=== PATIENT | female | born 2000 | race Caucasian/White ===

== ENCOUNTER 2022-08-27 09:52 | Emergency (ER) | payer MEDICAID, SELFPAY ==
[2022-08-27 10:30] VITALS: BP 120/78; PULSE 81; RESP 20; TEMP 36.2; O2SAT 98; BMI 28.3
[2022-08-27 11:24] LABS: Appearance Urine Clear; Color Urine Yellow; Glucose Urine UA Negative (Negative); Leukocyte Esterase Urine Negative (Negative); Nitrite Urine Negative (Negative); UMIC TRIGGER UACC YES; Urine Blood Large (3+) (Negative); Urine Ketones Negative (Negative); Urine Protein Negative (Neg-Trace)
[2022-08-27 11:26] LABS: Basophils Percent Auto 0.5 % (0-2); Eosinophils Absolute Auto 0.4 X10*3/uL (0.0-0.4); Eosinophils Percent Auto 9.3 % (0-4); Hematocrit 36.7 % (37.0-47.0); Hemoglobin 12.2 g/dl (12.0-16.0); Imm Gran Abs Auto 0.03 X10*3/uL (0.00-0.03); Imm Gran Pct Auto 0.8 % (0.0-0.4); Lymphocytes Absolute Auto 1.6 X10*3/uL (1.2-4.9); MANUAL DIFF FLAG SCAN; Mean Corpuscular HGB Conc 33.2 g/dl (31.0-35.0); Mean Corpuscular Hemoglobin 28.1 pg (27.0-33.0); Mean Corpuscular Volume 84.6 fL (80.0-98.0); Monocytes Absolute Auto 0.2 X10*3/uL (0.1-1.2); Monocytes Percent Auto 5.8 % (2-11); Neutrophils Absolute Auto 1.8 x10*3/uL (2.0-8.3); Neutrophils Percent Auto 44.6 % (45-73); PLT CLUMP 1; Red Blood Count 4.34 X10*6/uL (4.20-5.50); Red Cell Distribution Width 12.3 % (11.0-16.0); SCAN SMEAR FLAG 1
[2022-08-27 11:26] LABS: UPreg QC Valid YES; Urine Pregnancy NEGATIVE (NEGATIVE)
[2022-08-27 11:36] LABS: Influenza A PCR NEGATIVE (Negative); Influenza B PCR NEGATIVE (Negative); Resp Syncy Virus RNA Qual PCR NEGATIVE (Negative); SARS COV2 PCR INHOUSE NEGATIVE (Negative)
[2022-08-27 11:47] LABS: Bacteria Urine 2+ (None Seen); Hyaline Casts Urine 0-2 /LPF (0-2); WBC Urine 0-5 /HPF (0-5)
[2022-08-27 12:14] VITALS: BP 124/67; PULSE 82; RESP 14; TEMP 36.7; O2SAT 97
--- NOTE | 2022-08-27 12:22 | ED.GENADULT ---
HPI - General Adult General Chief complaint: General Medical Stated complaint: abd pain, cant keep anything down Time Seen by Provider: 08/27/22 11:56 Source: patient Mode of arrival: ambulatory Limitations: no limitations History of Present Illness HPI narrative: 22-year-old female with no significant past medical history presents to the emergency department with complaints of sharp abdominal pain, a foul smell in her nose, and tooth pain/swelling on the right upper and left lower mouth x5 days. She also complains of a vague headache. She states she had COVID-19 roughly 2 weeks ago and she has been having nasal congestion since. She states she is not followed by a dentist that she is afraid to be seen by 1. She has known broken and cracked teeth in her mouth. She denies any chest pain or shortness of breath and endorses having her menses currently. She endorses cigarette and marijuana use. Denies any use of harder drugs, however she receives treatment in a methadone clinic with her last dose this morning. Onset (ago): day(s) (5) Location: mouth and abdomen Radiation: non-radiation Severity: moderate Severity scale (1-10): 6 Quality: aching Pain Consistency: constant Relieving factors: none Exacerbating factors: none Associated symptoms: denies other symptoms Treatments prior to arrival: none Related Data Previous Rx's Medication Instructions Recorded amoxicillin 875 mg-potassium 1 tab PO BID 7 days #14 tabs 08/27/22 clavulanate 125 mg tablet Allergies Allergy/AdvReac Type Severity Reaction Status Date / Time No Known Allergies Allergy Unverified 06/14/20 16:38 [No Known Allergies*] Review of Systems Review of Systems: Yes all other systems are reviewed and are negative Constitutional: Constitutional: Reports no additional constitutional complaints, Denies chills, Denies fatigue, Denies fever(s), Reports headache(s), Denies malaise and Denies weakness Eyes: Eyes: Reports no additional eye complaints and Denies change in vision ENT: Reports system reviewed and no additional complaints, except as documented, Reports Normal hearing present, Denies dizziness, Reports headache(s), Reports nasal congestion and Denies sore throat Cardiovascular: Cardiovascular: Reports no additional cardiovascular complaints, Denies chest pain and Denies dyspnea Respiratory: Respiratory: Reports no additional respiratory complaints and Denies dyspnea Gastrointestinal: Gastrointestinal: Reports no additional gastrointestinal complaints, Reports abdominal pain and Denies change in bowel habits Genitourinary: Genitourinary: Reports no additional female genitourinary complaints and Reports other (current menses) Musculoskeletal: Musculoskeletal: Reports no additional musculoskeletal complaints and Reports myalgias Integumentary/Breasts: Skin/Breast: Reports system reviewed and no additional complaints, except as docu, Denies lesions, Denies rash and Denies sores Neurologic: Reports system reviewed and no additional complaints, except as documented, Reports Normal hearing present, Denies dizziness, Reports headache(s) and Denies weakness Psychiatric: Psychiatric: Reports no additional psychiatric complaints and Denies anxiety Endocrine: Endocrine: Denies fatigue PMFSH Past Medical History Attestation statement: The following information was validated with the patient. Source: old records reviewed and obtained from family Social History Social History Advance Directives: No Advance Directives Information Provided: No Physical Exam ED Vital Signs: Vital Signs - 24 hr 08/27/22 10:30 08/27/22 12:14 08/27/22 12:24 Temperature 97.2 F 98.1 F 98.1 F Pulse Rate 81 82 82 Respiratory Rate 20 14 14 Blood Pressure 120/78 124/67 124/67 Pulse Oximetry 98 97 97 Oxygen Delivery Method Room Air Room Air BMI result Body Mass Index 28.3 Const General: cooperative, alert and awake Nutritional Appearance: well nourished Orientation/consciousness: patient oriented x3 Limitations: no limitations HENMT Head: Yes normal to inspection and Yes atraumatic Ears: hearing grossly normal bilaterally and external ears normal General nose exam: Normal external nose present Face and sinus: No ecchymosis, No erythema and Yes other (swelling noted at right zygoma and left front mandible) Mouth: tongue normal, moist mucous membranes and malodorous breath Teeth and gingiva: abnormal tooth and associated gingiva (#22, 1, 2) and poor dentition Throat: Yes posterior oropharynx normal Eyes General: appearance normal, both eyes and all related structures Alignment and Position: alignment normal Periorbital: periorbital findings normal Eyelids: Yes eyelids normal Conjunctivae: conjunctivae normal Sclerae: sclerae normal Pupils: Equal, round and reactive pupils present EOM: EOMs intact bilaterally Neck Neck: Yes normal visual inspection, Yes full ROM and Yes no lymphadenopathy Chest Chest palpation & inspection: normal inspection of the chest Resp Effort & Inspection: normal respiratory effort and able to speak in complete sentences Auscultation: clear to auscultation bilaterally Cardio Rate: regular rate Rhythm: regular rhythm GI Inspection: Yes normal to inspection and Yes striae Palpation (GI): Soft to palpation, Firmness to palpation present (GI), nontender and No Rebound tenderness present Auscultation: normal bowel sounds General: Yes no CVA tenderness Back/Spine/Pelvis Back: no CVA tenderness Cervical Spine: cervical ROM normal Thoracic/Lumbar Spine: thoraco-lumbar ROM normal Skin General skin exam: no rashes or lesions noted Neuro General: patient oriented x3 Cranial nerves: Yes Equal, round and reactive pupils present, Yes Midline tongue present and Yes Normal hearing present Cognition (Neuro): normal cognition Gait exam (Neuro): Normal gait present Motor exam (neuro): 5/5 motor strength present throughout Sensory Exam: Normal double simultaneous stimulation for sensation Extrem General: Yes normal to inspection, Yes full ROM and Yes capillary refill normal Psych Appearance: grossly normal Mental Status: mental status grossly normal Speech and movement: Normal speech and movement present Affect: normal affect Attitude: cooperative Thought process: Normal thought process present Thought content: Normal thought content present Insight: Good insight present (Psych) Judgement: Good judgement present (Psych) Medications Administered Discontinued Medications Generic Name Dose Route Start Last Admin Trade Name Freq PRN Reason Stop Dose Admin Amoxicillin/Clavulanate Potassium 875 mg 08/27/22 12:20 08/27/22 12:51 Amoxicillin/Potassium Clav 875 Mg Tablet PO 08/27/22 12:21 875 mg ONCE ONE Administration Medical Decision Making [facility] Narrative Medical decision making narrative: 22-year-old female with no significant past medical history presents to the emergency department with complaints of sharp abdominal pain, a foul smell in her nose, and tooth pain/swelling on the right upper and left lower mouth x5 days. Erythema and swelling noted at tooth 22, 1, 2. Augmentin 850 mg given and plan to discharge patient with Augmentin 875 b.i.d. x7 days and recommendation to see dentist immediately. GI cocktail (Maalox, viscous lidocaine, p.o. Pepcid) given. Physical exam and history discussed with patient with no unanswered questions at this time. Educated that it is essential that she follow up with a dentist regarding dentition. Educated to return to the emergency department with chest pain, shortness of breath, severe abdominal pain, nausea, vomiting, fever, chills or any other emergent symptoms it may concern you. Recommended to follow-up with her primary care provider for further treatment and management. Lab Data Result diagrams: 08/27/22 11:04 08/27/22 11:04 Labs: Lab Results 08/27/22 08/27/22 08/27/22 Range/Units 10:50 11:04 11:10 WBC 4.0 L (4.8-10.8) X10*3/uL RBC 4.34 (4.20-5.50) X10*6/uL Hgb 12.2 (12.0-16.0) g/dl Hct 36.7 L (37.0-47.0) % MCV 84.6 (80.0-98.0) fL MCH 28.1 (27.0-33.0) pg MCHC 33.2 (31.0-35.0) g/dl RDW 12.3 (11.0-16.0) % Plt Count TNP MPV TNP Immature Gran % (Auto) 0.8 H (0.0-0.4) % Neut % (Auto) 44.6 L (45-73) % Lymph % (Auto) 39.0 (20-40) % Cedar % (Auto) 5.8 (2-11) % Eos % (Auto) 9.3 H (0-4) % Baso % (Auto) 0.5 (0-2) % Lymph # (Auto) 1.6 (1.2-4.9) X10*3/uL Cedar # (Auto) 0.2 (0.1-1.2) X10*3/uL Eos # (Auto) 0.4 (0.0-0.4) X10*3/uL Baso # (Auto) 0.0 (0.0-0.2) X10*3/uL Abs Immat Gran (auto) 0.03 (0.00-0.03) X10*3/uL Absolute Neuts (auto) 1.8 L (2.0-8.3) x10*3/uL Absolute Nucleated RBC 0.000 (0.0-0.012) X10*3/uL Nucleated RBC % (auto) 0.0 (0.0-0.2) /100WBC Smear Tech's Comments Not Reportable Urine Color Yellow Urine Appearance Clear Urine pH 7.0 (5.0-9.0) Ur Specific [place] 1.020 (1.005-1.025) Urine Protein Negative (Neg-Trace) mg/dL Urine Glucose (UA) Negative (Negative) mg/dL Urine Ketones Negative (Negative) mg/dL Urine Blood Large (3+) H (Negative) Urine Nitrite Negative (Negative) Ur Leukocyte Esterase Negative (Negative) Urine RBC 3-5 H (0-2) /HPF Urine WBC 0-5 (0-5) /HPF Ur Squamous Epith Cells 6-10 (0-2) /HPF Urine Bacteria 2+ (None Seen) Hyaline Casts 0-2 (0-2) /LPF Urine Test (NEGATIVE) Influenza Type A (PCR) NEGATIVE (Negative) Influenza Type B (PCR) NEGATIVE (Negative) RSV RNA Qual (PCR) NEGATIVE (Negative) SARS-CoV-2 RNA (RT-PCR) NEGATIVE (Negative) 08/27/22 Range/Units 11:10 WBC (4.8-10.8) X10*3/uL RBC (4.20-5.50) X10*6/uL Hgb (12.0-16.0) g/dl Hct (37.0-47.0) % MCV (80.0-98.0) fL MCH (27.0-33.0) pg MCHC (31.0-35.0) g/dl RDW (11.0-16.0) % Plt Count MPV Immature Gran % (Auto) (0.0-0.4) % Neut % (Auto) (45-73) % Lymph % (Auto) (20-40) % Cedar % (Auto) (2-11) % Eos % (Auto) (0-4) % Baso % (Auto) (0-2) % Lymph # (Auto) (1.2-4.9) X10*3/uL Cedar # (Auto) (0.1-1.2) X10*3/uL Eos # (Auto) (0.0-0.4) X10*3/uL Baso # (Auto) (0.0-0.2) X10*3/uL Abs Immat Gran (auto) (0.00-0.03) X10*3/uL Absolute Neuts (auto) (2.0-8.3) x10*3/uL Absolute Nucleated RBC (0.0-0.012) X10*3/uL Nucleated RBC % (auto) (0.0-0.2) /100WBC Smear Tech's Comments Urine Color Urine Appearance Urine pH (5.0-9.0) Ur Specific [place] (1.005-1.025) Urine Protein (Neg-Trace) mg/dL Urine Glucose (UA) (Negative) mg/dL Urine Ketones (Negative) mg/dL Urine Blood (Negative) Urine Nitrite (Negative) Ur Leukocyte Esterase (Negative) Urine RBC (0-2) /HPF Urine WBC (0-5) /HPF Ur Squamous Epith Cells (0-2) /HPF Urine Bacteria (None Seen) Hyaline Casts (0-2) /LPF Urine Test NEGATIVE (NEGATIVE) Influenza Type A (PCR) (Negative) Influenza Type B (PCR) (Negative) RSV RNA Qual (PCR) (Negative) SARS-CoV-2 RNA (RT-PCR) (Negative) Discharge Plan Discharge Clinical Impression: Acute oral pain Patient Disposition: Home, Self-Care Additional Instructions: You have been prescribed an antibiotic for treatment of your dental/oral pain. Please complete the 7 day antibiotic course. It is essential that he follow up with a dentist regarding your teeth. Please return to the emergency department with chest pain, shortness of breath, severe abdominal pain, nausea, vomiting, or any other emergent symptoms it may concern you. Recommended to follow-up with her primary care provider for further treatment and management. Prescriptions: New amoxicillin-pot clavulanate 875-125 mg tablet 1 tab PO BID 7 Days Qty: 14 0RF Referrals: [facility] – [place] Family Medicine [Provider Group] [facility] [place] Primary CareZhanna [Provider Group] [facility] [place] Primary CareK[facility] [Provider Group] Stand Alone Forms: Work/School Release Print Language: Tanzanian
[2022-08-27 12:24] VITALS: BP 124/67; PULSE 82; RESP 14; TEMP 36.7; O2SAT 97
[2022-08-27] MEDS: Amoxicillin/Potassium Clav 875 MG TABLET PO (12:51)
[2022-08-27 13:09] LABS: Alanine Aminotransferase 13 U/L (0-31); Albumin Level 3.9 g/dL (3.5-5.0); Alkaline Phosphatase 72 U/L (39-117); Anion Gap 13 (12-20); Aspartate Amino Transferase 15 U/L (5-31); Bilirubin Total 0.3 mg/dL (0.0-1.0); Blood Urea Nitrogen 9 mg/dL (9-16); Calcium 8.9 mg/dL (8.4-10.2); Carbon Dioxide 29 mmol/L (22-29); Chloride 105 mmol/L (96-108); Creatinine Clr Calc Pharmacy 125.5; Estimated Glomerular Filt Rate > 60; Glucose Random 88 mg/dL (60-115); Lipase 20 U/L (8-78); Potassium 4.6 mmol/L (3.3-5.1); Sodium 142 mmol/L (135-145); Total Protein 6.4 g/dL (6.5-8.0)
[2022-08-27] MEDS: Magnesium Hydrox/Alum Hydrox 30 ML ORAL.SUSP PO (13:09)
[2022-08-27] MEDS: Lidocaine HCl Viscous 2 % 15 ML SOLUTION MUCOUS MEM (13:09)
[2022-08-27] MEDS: Famotidine 20 MG TABLET PO (13:09)
== END 2022-08-27 13:13 | disposition home or self-care (01) ==
PROVIDERS: Emergency Provider Student in an Organized Health Care Education/Training Program
DX: K08.89 Other specified disorders of teeth and supporting structures (principal); Z20.822 Contact with and (suspected) exposure to COVID-19; F11.20 Opioid dependence, uncomplicated
CPT/HCPCS: 0241U; 36415; 80053; 81001; 81025; 83690; 85025; 99283; 99284

== ENCOUNTER 2023-03-10 10:12 | Emergency (ER) | payer MEDICAID, SELFPAY ==
[2023-03-10 10:16] VITALS: BP 147/92; PULSE 110; RESP 20; TEMP 36.9; O2SAT 99; BMI 28.0
--- NOTE | 2023-03-10 10:20 | ED_ITS ---
HPI - Allergic Reaction General Chief complaint: Allergic Reaction Stated complaint: Allergic Reaction Time Seen by Provider: 03/10/23 10:15 Source: patient and family Mode of arrival: ambulatory Limitations: no limitations History of Present Illness MD complaint: allergic reaction and facial swelling Onset (ago): hour(s) Exposure: other (hair dye 3 days ago) Symptoms: rash, itching and facial swelling Severity: moderate Treatment prior to arrival: none Related Data Previous Rx's Medication Instructions Recorded amoxicillin 875 mg-potassium 1 tab PO BID 7 days #14 tabs 08/27/22 clavulanate 125 mg tablet diphenhydramine HCl 25 mg capsule 25 mg PO TID PRN allergic reaction 03/10/23 (Benadryl) #30 caps prednisone 20 mg tablet 60 mg PO DAILY #15 tabs 03/10/23 Allergies Allergy/AdvReac Type Severity Reaction Status Date / Time No Known Allergies Allergy Verified 03/10/23 10:20 [No Known Allergies*] Review of Systems Review of Systems: Yes all other systems are reviewed and are negative ENT: Comments: facial and periorbital swelling PMFSH Social History Social History Advance Directives: No Advance Directives Information Provided: Yes Physical Exam ED Vital Signs: Vital Signs - 24 hr 03/10/23 10:16 Temperature 98.4 F Pulse Rate 110 H Respiratory Rate 20 Blood Pressure 147/92 H Pulse Oximetry 99 Oxygen Delivery Method Room Air BMI result Body Mass Index 28.0 Const Other: severe facial swelling General: healthy appearing Nutritional Appearance: average body habitus Orientation/consciousness: oriented to person and patient oriented x3 Limitations: no limitations HENMT Head: Yes normal to inspection Ears: external ears normal General nose exam: Normal external nose present Mouth: Normal oral and palatal mucosa present and oropharynx normal Throat: Yes posterior oropharynx normal Eyes Other: periorbital edema Neck Neck: Yes normal visual inspection Chest Chest palpation & inspection: normal inspection of the chest Resp Auscultation: clear to auscultation bilaterally Cardio Jugular venous distension: no JVD Rate: regular rate Rhythm: regular rhythm Heart sounds: S1 normal heart sound present and S2 normal heart sound present GI Inspection: Yes normal to inspection Palpation (GI): Soft to palpation, nontender and No hepatosplenomegaly present Auscultation: normal bowel sounds General: Yes no CVA tenderness Back/Spine/Pelvis Back: no CVA tenderness Skin General skin exam: no rashes or lesions noted Neuro General: oriented to person and patient oriented x3 Cranial nerves: Yes CN's II-XII intact bilaterally Motor exam (neuro): 5/5 motor strength present throughout Extrem General: Yes normal to inspection Psych Appearance: grossly normal Course Reevaluation(s) Reevaluation #1: patient improved eyes can now slightly open. will dc home on benadryl and prednison Time: 13:08 Medications Administered Discontinued Medications Generic Name Dose Route Start Last Admin Trade Name Freq PRN Reason Stop Dose Admin Diphenhydramine HCl 50 mg 03/10/23 10:17 03/10/23 10:33 Diphenhydramine Hcl 50 Mg/Ml Vial IVPUSH 03/10/23 10:18 50 mg ONCE ONE Administration Methylprednisolone Sodium Succinate 125 mg 03/10/23 10:17 03/10/23 10:36 Methylprednisolone Sod Succ 125 Mg/2 Ml Vial IVPUSH 03/10/23 10:18 125 mg ONCE ONE Administration Medical Decision Making Differential Diagnosis Differential Diagnoses: The differential diagnosis associated with the presentation includes (contact dermatitis, allergic reaction) Independent Historian Clinical information obtained from an independent historian. History obtained from or confirmed by: Spouse Discharge Plan Discharge Clinical Impression: Contact dermatitis Patient Disposition: Home, Self-Care Instructions: Contact Dermatitis (ED) Prescriptions: New diphenhydramine HCl [Benadryl] 25 mg capsule 25 mg PO TID PRN (Reason: allergic reaction) Qty: 30 0RF prednisone 20 mg tablet 60 mg PO DAILY Qty: 15 0RF No Action amoxicillin-pot clavulanate 875-125 mg tablet 1 tab PO BID 7 Days Qty: 14 0RF Referrals: [facility] [Primary Care Provider] - 10 days
[2023-03-10] MEDS: diphenhydrAMINE HCL 50 MG/ML VIAL IVPUSH (10:33)
[2023-03-10] MEDS: methylPREDNISolone Sod Succ 125 MG/2 ML VIAL IVPUSH (10:36)
--- NOTE | 2023-03-10 10:43 | PC.NURSE ---
pt reports that she dyed her hair 3 days ago and this morning she woke up with both eyes swollen/red/painfull/itchy. reports she applied Benadryl on her forehead this morning which caused itching to decrease. she denies sob/difficulty breathing/cp. no tongue swelling observed/reported. 20g iv inserted LAC. both iv Benadryl and Solumedrol given.
[2023-03-10 13:10] VITALS: BP 120/74; PULSE 81; RESP 14; TEMP 36.9; O2SAT 98
== END 2023-03-10 13:33 | disposition home or self-care (01) ==
PROVIDERS: Emergency Provider Emergency Medicine
DX: L23.9 Allergic contact dermatitis, unspecified cause (principal); Z79.899 Other long term (current) drug therapy
CPT/HCPCS: 96374; 96375; 99284; J1200; J2930